=== PATIENT | male | born 1955 | race Caucasian/White ===

== ENCOUNTER 2021-05-17 12:24 | Emergency (ER) | payer BC, MEDICARE ==
[2021-05-17 12:45] VITALS: BP 131/86
--- NOTE | 2021-05-17 14:00 | ED Physician Documentation ---
History of Present Illness - Stated complaint Stated Complaint: RT FINGER INJ - Chief complaint Chief Complaint: Laceration - History obtained from History obtained from: Patient, Family - Additonal information Additional information: Patient comes emergency department chief complaint of puncture wound to right index finger while "harvesting mussels". He states there is some generalized pain but denies any motor deficit. He denies any other injuries. His last tetanus shot was about 5 years ago. The incident happened just prior to arrival. No other complaints at this time. Review of Systems Ten Systems: 10 systems reviewed and negative Constitutional: reports: Reviewed and negative Eyes: reports: Reviewed and negative Ears: reports: Reviewed and negative Nose: reports: Reviewed and negative Throat: reports: Reviewed and negative Cardiac: reports: Reviewed and negative Respiratory: reports: Reviewed and negative GI: reports: Reviewed and negative : reports: Reviewed and negative Skin: reports: Other (Puncture wound) Musculoskeletal: reports: Reviewed and negative Neurologic: reports: Reviewed and negative Psychiatric: reports: Reviewed and negative Endocrine: reports: Reviewed and negative Immunocompromised: reports: Reviewed and negative PD PAST MEDICAL HISTORY - Allergies Allergies/Adverse Reactions: Allergies Allergy/AdvReac Type Severity Reaction Status Date / Time No Known Drug Allergies Allergy Verified 05/17/21 12:45 PD ED PE NORMAL - Vitals Vital signs reviewed: Yes - General General: Alert and oriented X 3, No acute distress, Well developed/nourished - HEENT HEENT: Atraumatic, PERRL, EOMI, Moist mucous membranes - Neck Neck: Supple, no meningeal sign - Cardiac Cardiac: Strong equal pulses - Respiratory Respiratory: No respiratory distress - Derm Derm: Normal color, Warm and dry, No rash, Other (1/2 cm laceration to dorsal aspect right index finger Over proximal phalanx. Tiny puncture wound, Which appears to be exit wound, on ulnar aspect of right index finger over middle phalanx.) - Extremities Extremities: No deformity, Other (Full range of motion right index finger. Strength intact to resistance in both flexion and extension with both IP joints) - Neuro Neuro: Alert and oriented X 3 - Psych Psych: Normal mood, Normal affect Results - Vitals Vitals: Vital Signs - 24 hr 05/17/21 12:40 Temperature 36.6 C Heart Rate 52 L Respiratory 16 Rate Blood Pressure 131/86 H O2 Saturation 97 Oxygen O2 Source Room air - Rads (name of study) R index finger XR Radiology: Final report received, EMP read indepedently, See rad report (neg) PD MEDICAL DECISION MAKING - ED course Complexity details: considered differential, d/w patient ED course: Wound was irrigated in the emergency department. X-ray showed no bony injury to the finger. We discussed wound care and the usual indications for return. Departure - Departure Disposition: 01 Home, Self Care Clinical Impression: Laceration, Puncture wound Condition: Stable Instructions: ED Wound Puncture General Comments: Please keep your wound clean and dry. Use ibuprofen and Tylenol if needed. You may use the finger As much as feels comfortable. If you develop any redness or swelling spreading throughout the finger, please have it rechecked immediately. Discharge Date/Time: 05/17/21 14:23
--- NOTE | 2021-05-17 14:06 | XRAY Report ---
PROCEDURE: Finger(s) RT INDICATIONS: R index finger vs hook TECHNIQUE: AP hand, 3 views of the second finger(s) acquired. COMPARISON: None FINDINGS: Bones: No fractures or dislocations. No suspicious bony lesions. Soft tissues: No suspicious soft tissue calcifications. IMPRESSION: No visualized acute fracture or dislocation. However, occult injury cannot be excluded. Recommend joao rt interval imaging follow-up in 7-10 days as clinically indicated for additional evaluation. Reviewed by: Aura Sykes MD on 05/17/2021 2:05 PM PDT Approved by: Aura Sykes MD on 05/17/2021 2:05 PM PDT Station ID: [id number]
== END 2021-05-17 14:23 | disposition home or self-care (01) ==
LOC: ED 12:24
DX: S61.210A Laceration without foreign body of right index finger without damage to nail, initial encounter (principal); W27.8XXA Contact with other nonpowered hand tool, initial encounter; Y93.89 Activity, other specified
CPT/HCPCS: 99282; 99283